=== PATIENT | female | born 1940 | race Caucasian/White ===

== ENCOUNTER 2019-01-11 15:25 | Emergency (ER) | payer MEDICARE, SELFPAY ==
[2019-01-11 15:35] VITALS: BP 168/89; PULSE 96; RESP 15; TEMP 36.6; O2SAT 99; BMI 24.3
== END 2019-01-11 17:23 | disposition left against medical advice (07) ==
PROVIDERS: Emergency Provider Emergency Medicine
DX: Z53.21 Procedure and treatment not carried out due to patient leaving prior to being seen by health care provider (principal)
CPT/HCPCS: 99282

== ENCOUNTER → 2020-03-23 14:23 | Outpatient (CLI) | payer MEDICARE, SELFPAY ==
--- NOTE | 2020-03-23 | DI.MRI.S_ITS ---
PROCEDURE: MR HIP RT WO CON INDICATIONS: Broken internal right hip prosthesis, initial encounter TECHNIQUE: Noncontrast coronal T1 spin echo and STIR through the bony pelvis. Coronal and axial T2 fast spin echo with fat saturation, sagittal T1 spin echo, and oblique axial T2 fast spin echo with fat saturation through the hip. COMPARISON: [facility] [place], CR, XR PELVIS WITH LATERAL HIP RIGHT, 03/04/2020, 9:42. FINDINGS: Image quality: Degraded by right hip arthroplasty artifact. Status post right hip arthroplasty. Visualized osseous structures are grossly unremarkable. Low STIR signal intensity material within the soft tissues surrounding the right proximal femur is present, consistent with postsurgical sequelae. No soft tissue fluid collections. Visualized pelvic viscera are grossly unremarkable. IMPRESSION: 1. Limited negative evaluation of the pelvis and right hip. CT might be helpful to evaluate the right hip prosthesis. Dictated by: Mee Meng M.D. on 03/23/2020 at 15:37 Approved by: Mee Meng M.D. on 03/23/2020 at 15:43
== END ==
PROVIDERS: PCP Physician Assistant; Referring Provider Orthopaedic Surgery; Visit Provider Orthopaedic Surgery
DX: T84.010A Broken internal right hip prosthesis, initial encounter (principal)
CPT/HCPCS: 73721

== ENCOUNTER 2020-04-24 15:23 | Emergency (ER) | payer MEDICARE, SELFPAY ==
[2020-04-24] VITALS (14 sets, daily range): BP systolic 191–240; BP diastolic 94–138; PULSE 80–88; RESP 13–41; TEMP 36.7–36.9; O2SAT 97–100; BMI 23.1
--- NOTE | 2020-04-24 15:59 | DI.RAD.S_ITS ---
PROCEDURE: XR CHEST 1V INDICATIONS: chest pain TECHNIQUE: One view of the chest was acquired. COMPARISON: None. FINDINGS: Surgical changes and devices: None. Lungs and pleura: Lungs are clear. No pleural effusions or pneumothorax. Mediastinum: Mediastinal contours appear normal. Heart size is normal. Bones and chest wall: No suspicious bony lesions. Overlying soft tissues appear unremarkable. IMPRESSION: Mild interstitial prominence, within the lung parenchyma, no pneumonia found. A definite source of chest pain is not seen. Dictated by: Darren Lo M.D. on 04/24/2020 at 16:48 Approved by: Darren Lo M.D. on 04/24/2020 at 16:48
--- NOTE | 2020-04-24 16:29 | PC.NURSE ---
Pt denies pain of any kind except for R hip pain, which was the reason for her visit to the doctor today.
--- NOTE | 2020-04-24 16:32 | PC.NURSE ---
Pt denies any s/sx of HTN, such as SIMENTAL. Denies cardiac hx although she states that she used to take medication for HTN over 13 years ago. Went to the doctor today for preop appointment for second-time R hip replacement, first was about 8 years ago. Takes CBD oil for hip pain and brain and memory supplements but denies other meds. Friend with her states that she has some dementia. Pt pleasant but confused with multiple activities in the room. BP taken on both arms without significant difference in measurements. No edema noted and pt denies edema at any time.
[2020-04-24 16:43] LABS: Prothrombin Time 11.3 SECONDS (10.1-12.7)
[2020-04-24 16:46] LABS: PTT Partial Thromboplastin Tim 26 SECONDS (26.4-36.2)
[2020-04-24 16:47] LABS: Add Manual Diff / Slide Review NO; Basophils Absolute Auto 100 /uL (0-100); Basophils Percent Auto 1.3 % (0-2); Eosinophils Absolute Auto 100 /uL (0-450); Eosinophils Percent Auto 1.1 % (2-4); Hematocrit 44.9 % (36-46); Hemoglobin 15.4 g/dL (12.0-16.0); Lymphocytes Absolute Auto 2800 /uL (1100-4500); Lymphocytes Percent Auto 33.3 % (25-40); Mean Corpuscular HGB Conc 34.3 % (30-36); Mean Corpuscular Hemoglobin 30.6 PG (26-34); Mean Corpuscular Volume 89.3 fL (80-100); Monocytes Absolute Auto 700 /uL (0-900); Monocytes Percent Auto 7.7 % (3-14); Neutrophils Absolute Auto 4800 /uL (1500-7000); Neutrophils Percent Auto 56.6 % (50-75); Red Blood Cell Count 5.03 X10^6/uL (4.0-5.2); Red Cell Distribution Width 13.5 % (11.6-14.8); White Blood Cell Count 8.5 X10^3/uL (4.5-11.0)
[2020-04-24 16:51] LABS: Alanine Aminotransferase 19 IU/L (<35); Albumin 4.8 g/dL (3.5-5.0); Albumin Globulin Ratio 1.5 (1.0-2.8); Alkaline Phosphatase 113 U/L (38-126); Aspartate Aminotransferase 33 IU/L (14-36); BUN Creatinine Ratio 27.5 (6-22); Bilirubin Total 0.7 mg/dL (0.2-1.3); Blood Urea Nitrogen 19 mg/dL (7-17); Calcium 9.7 mg/dL (8.4-10.2); Carbon Dioxide 28 mmol/L (22-32); Chloride 93 mmol/L (98-107); Creatine Kinase 67 U/L (30-135); Estimated Glomerular Filt Rate > 60.0 mL/min (>60); Globulin 3.2 g/dL (1.7-4.1); Glucose 98 mg/dL (80-110); HEMOLYSIS 15 (0-50); Lipase 220 U/L (23-300); Potassium 4.1 mmol/L (3.4-5.1); Sodium 130 mmol/L (137-145)
[2020-04-24 17:03] LABS: Troponin I < 0.012 ng/mL (0.01-0.034)
[2020-04-24] MEDS: lisinopriL 5 MG TABLET PO (17:43)
--- NOTE | 2020-04-24 17:48 | ED.GENADULT ---
HPI - General Adult <Shanelart OliveiraYENIFER- - Last Filed: 04/24/20 18:40> General Chief complaint: Hypertension Stated complaint: high blood pressure Time Seen by Provider: 04/24/20 15:57 Source: patient Mode of arrival: Ambulatory Limitations: no limitations History of Present Illness HPI narrative: The patient is a 79-year-old female former smoker with history of have memory issues, remote history of hypertension who presents with a chief complaint of high blood pressure. She went to preop today to be evaluated for a possible total hip. She was found to be hypertensive in the 240 systolic so she was referred to the emergency department. The patient denies any abdominal pain, chest pain, nausea vomiting or diarrhea. She denies any headache or lightheadedness or dizziness. She states she does not know how long her blood pressures been high, she had a hip replacement several years ago and states that she does not see doctors very often. She used to be on blood pressure medication about 14-15 years ago, does not remember what she was taking Related Data Home Medications Medication Instructions Recorded Confirmed oxycodone-acetaminophen 1 - 2 tab PO Q6H PRN 01/11/19 Previous Rx's Medication Instructions Recorded lisinopril 5 mg PO DAILY #14 tab 04/24/20 Allergies Allergy/AdvReac Type Severity Reaction Status Date / Time oxycodone AdvReac Verified 04/24/20 15:28 Review of Systems <Shanelart Morochoronald [facility] - Last Filed: 04/24/20 18:40> Review of Systems Narrative: GENERAL: Denies chills, fatigue, malaise, fever, sweats. HEENT: Denies sinus pain, ear pain, sore throat, difficulty swallowing, dizziness. RESPIRATORY: Denies dyspnea, cough, wheezing, hemoptysis, sputum. CARDIOVASCULAR: Denies chest pain, palpitations, orthopnea, edema, GASTROINTESTINAL: Denies nausea, vomiting, abdominal pain, diarrhea, constipation, melena. : Denies dysuria, frequency, incontinence, hematuria, urinary retention. MUSCULOSKELETAL: denies weakness, joint pain, or bony pain SKIN: Denies rash, skin lesions, or other NEUROLOGIC: Denies weakness, headache, numbness, change in speech, confusion, seizures, incoordination. PSYCHIATRIC: No concerning psychosocial issues. 12 point review of systems is negative except for those stated above Patient History <EVGENY James - Last Filed: 04/24/20 18:40> Medical History (Updated 04/24/20 @ 18:20 by EVGENY James) Hypertension (Acute) Social History Smoking Status: Former smoker Smoking Status: Former smoker alcohol intake frequency: 0-2 drinks per day Substance Use Type: does not use Exam <EVGENY James - Last Filed: 04/24/20 18:40> Narrative Exam Narrative: GENERAL: This is a well-nourished, well-developed patient, in no acute distress HEAD: Atraumatic. Normocephalic. No temporal or scalp tenderness. EYES: Pupils equal round and reactive. Extraocular motions intact. No scleral icterus. No injection or drainage. ENT: Nose without bleeding, purulent drainage or septal hematoma. Throat without erythema, tonsillar hypertrophy or exudate. Uvula midline. Airway patent. NECK: Trachea midline. No JVD or lymphadenopathy. Supple, nontender, no meningeal signs. CARDIOVASCULAR: Regular rate and rhythm RESPIRATORY: Clear to auscultation. Breath sounds equal bilaterally. No wheezes, rales, or rhonchi. No cough. No increased respiratory effort. No accessory muscle use. GASTROINTESTINAL: Abdomen soft, non-tender, nondistended. No hepato-splenomegaly, or palpable masses. No guarding. EXTREMITIES: No clubbing, cyanosis, or edema. No joint tenderness, effusion, or edema noted. BACK: Nontender without deformity or crepitance. No flank tenderness. NEURO: AOx3. Interactive. Age appropriate. Using all extremities equally. SKIN: No rash or erythema on visible skin Initial Vital Signs Initial Vital Signs: Vital Signs Temperature 98.5 F 04/24/20 15:28 Pulse Rate 83 04/24/20 15:28 Respiratory Rate 04/24/20 15:28 Blood Pressure 240/105 H 04/24/20 15:28 Pulse Oximetry 97 04/24/20 15:28 <Mani Dickens MD - Last Filed: 05/02/20 04:57> Initial Vital Signs Initial Vital Signs: Vital Signs Temperature 98.5 F 04/24/20 15:28 Pulse Rate 83 04/24/20 15:28 Respiratory Rate 04/24/20 15:28 Blood Pressure 240/105 H 04/24/20 15:28 Pulse Oximetry 97 04/24/20 15:28 Scores <EVGENY James - Last Filed: 04/24/20 18:40> GCS Dazey coma scale eye opening: Spontaneous Areli coma scale verbal response: Orientated Dazey coma scale motor response: Obey commands Areli coma scale total score: 15 Course <EVGENY James - Last Filed: 04/24/20 18:40> Orders Ordered: Discontinued Medications Lisinopril (Zestril) 5 mg PO NOW ONE Stop: 04/24/20 17:30 Last Admin: 04/24/20 17:43 Dose: 5 mg Documented by: VINNIE Vital Signs Vital signs: Vital Signs - 8 hr 04/24/20 15:28 04/24/20 16:02 04/24/20 16:30 Temperature 98.5 F Pulse Rate 83 80 80 Respiratory Rate 20 19 Blood Pressure 240/105 H Pulse Oximetry 97 99 100 04/24/20 16:34 04/24/20 16:36 04/24/20 16:46 Temperature 98.1 F Pulse Rate 82 83 Respiratory Rate 24 Blood Pressure 225/112 H 218/138 H 207/98 H Pulse Oximetry 99 99 04/24/20 17:00 04/24/20 17:15 04/24/20 17:30 Temperature Pulse Rate 80 80 80 Respiratory Rate 13 35 H 20 Blood Pressure 200/99 H 191/94 H 191/97 H Pulse Oximetry 98 98 98 04/24/20 17:43 04/24/20 17:45 04/24/20 18:00 Temperature Pulse Rate 87 88 80 Respiratory Rate 28 H 41 H Blood Pressure 191/97 H 200/101 H 219/105 H Pulse Oximetry 99 99 04/24/20 18:11 04/24/20 18:15 Temperature Pulse Rate 82 80 Respiratory Rate 17 25 H Blood Pressure 217/107 H 193/105 H Pulse Oximetry 99 98 <Mani Dickens MD - Last Filed: 05/02/20 04:57> Orders Ordered: Discontinued Medications Lisinopril (Zestril) 5 mg PO NOW ONE Stop: 04/24/20 17:30 Last Admin: 04/24/20 17:43 Dose: 5 mg Documented by: LMISQUITTA Vital Signs Vital signs: Vital Signs - 8 hr 04/24/20 15:28 04/24/20 16:02 04/24/20 16:30 Temperature 98.5 F Pulse Rate 83 80 80 Respiratory Rate 20 19 Blood Pressure 240/105 H Pulse Oximetry 97 99 100 04/24/20 16:34 04/24/20 16:36 04/24/20 16:46 Temperature 98.1 F Pulse Rate 82 83 Respiratory Rate 24 Blood Pressure 225/112 H 218/138 H 207/98 H Pulse Oximetry 99 99 04/24/20 17:00 04/24/20 17:15 04/24/20 17:30 Temperature Pulse Rate 80 80 80 Respiratory Rate 13 35 H 20 Blood Pressure 200/99 H 191/94 H 191/97 H Pulse Oximetry 98 98 98 04/24/20 17:43 04/24/20 17:45 04/24/20 18:00 Temperature Pulse Rate 87 88 80 Respiratory Rate 28 H 41 H Blood Pressure 191/97 H 200/101 H 219/105 H Pulse Oximetry 99 99 04/24/20 18:11 04/24/20 18:15 Temperature Pulse Rate 82 80 Respiratory Rate 17 25 H Blood Pressure 217/107 H 193/105 H Pulse Oximetry 99 98 Medical Decision Making <Shanel Oliveira, MANAGER [employer]ATE[employer] - Last Filed: 04/24/20 18:40> Lab Data Result diagrams: 04/24/20 16:15 04/24/20 16:15 Labs: Lab Results 04/24/20 04/24/20 04/24/20 Range/Units 16:15 16:15 16:15 WBC 8.5 (4.5-11.0) X10^3/uL RBC 5.03 (4.0-5.2) X10^6/uL Hgb 15.4 (12.0-16.0) g/dL Hct 44.9 (36-46) % MCV 89.3 (80-100) fL MCH 30.6 (26-34) PG MCHC 34.3 (30-36) % RDW 13.5 (11.6-14.8) % Plt Count TNP Neut % (Auto) 56.6 (50-75) % Lymph % (Auto) 33.3 (25-40) % [place] % (Auto) 7.7 (3-14) % Eos % (Auto) 1.1 L (2-4) % Baso % (Auto) 1.3 (0-2) % Neut # (Auto) 4800 (3642-8548) /uL Lymph # (Auto) 2800 (6148-8018) /uL [place] # (Auto) 700 (0-900) /uL Eos # (Auto) 100 (0-450) /uL Baso # (Auto) 100 (0-100) /uL PT 11.3 (10.1-12.7) SECONDS INR 1.0 (0.9-1.3) APTT 26 L (26.4-36.2) SECONDS Sodium 130 L (137-145) mmol/L Potassium 4.1 (3.4-5.1) mmol/L Chloride 93 L (98-107) mmol/L Carbon Dioxide 28 (22-32) mmol/L BUN 19 H (7-17) mg/dL Creatinine 0.69 (0.52-1.04) mg/dL Estimated GFR > 60.0 (>60) mL/min BUN/Creatinine Ratio 27.5 H (6-22) Glucose 98 (80-110) mg/dL Calcium 9.7 (8.4-10.2) mg/dL Total Bilirubin 0.7 (0.2-1.3) mg/dL AST 33 (14-36) IU/L ALT 19 (<35) IU/L Alkaline Phosphatase 113 (38-126) U/L Total Creatine Kinase 67 (30-135) U/L CK-MB (CK-2) TNP CK-MB (CK-2) Rel Index TNP Troponin I < 0.012 (0.01-0.034) ng/mL Total Protein 8.0 (6.3-8.2) g/dL Albumin 4.8 (3.5-5.0) g/dL Globulin 3.2 (1.7-4.1) g/dL Albumin/Globulin Ratio 1.5 (1.0-2.8) Lipase 220 (23-300) U/L Imaging Data Chest x-ray: Radiologist's Impression: [address] [place] [id number] XRay Report Signed Patient: Roslyn Fontaine#: [id number] : 2Acct:[id number] Age/Sex: 79 / FDate of Service: 04/24/20 Loc: ED Accession Number: [id number] Procedure: XR chest 1V Ordering Provider: Shanel Oliveira PROCEDURE: XR CHEST 1V INDICATIONS: chest pain TECHNIQUE: One view of the chest was acquired. COMPARISON: None. FINDINGS: Surgical changes and devices: None. Lungs and pleura: Lungs are clear. No pleural effusions or pneumothorax. Mediastinum: Mediastinal contours appear normal. Heart size is normal. Bones and chest wall: No suspicious bony lesions. Overlying soft tissues appear unremarkable. IMPRESSION: Mild interstitial prominence, within the lung parenchyma, no pneumonia found. A definite source of chest pain is not seen. Dictated by: Darren Lo M.D. on 04/24/2020 at 16:48 Approved by: Darren Lo M.D. on 04/24/2020 at 16:48 ECG Data Interpretation: Sinus rhythm. Ventricular rate 81. No ectopy noted. P.r. interval 167. QRS 87. Viewed by Dr. Dickens MDM Narrative Medical decision making narrative: The patient is a 79-year-old female who presents with a chief complaint of hypertension from preop clinic. She denies any symptoms, no chest pain shortness of breath. Her labs are overall reassuring, normal renal function. The patient presented hypertensive in the 240/120 range. We elected to try lisinopril to help bring down her blood pressure. However 15 minutes after she was given lisinopril, the patient was requesting to leave immediately. She states she is worried about her dogs. I discussed that leaving with such high blood pressure increases her risk of heart attack stroke and . I discussed this at length with the patient, her friend, as well as Jacqui MIX. Patient states she understands she is at higher risk of if she leaves the emergency department so hypertensive. However she still wants to leave against medical advice, Against Medical Advice paperwork signed the patient states understanding of risk of . However she was hemodynamically stable throughout her stay in the emergency department. I discussed that she can come back to the ER at any point, discussed being seen immediately if she has any concerns of heart attack stroke or acute concerns. Encouraged follow-up with primary care provider in the next few days. Patient and friend have no questions or concerns upon discharge and state understanding return precautions as well as follow-up care. <Mani Dickens MD - Last Filed: 05/02/20 04:57> Lab Data Labs: Lab Results 04/24/20 04/24/20 04/24/20 Range/Units 16:15 16:15 16:15 WBC 8.5 (4.5-11.0) X10^3/uL RBC 5.03 (4.0-5.2) X10^6/uL Hgb 15.4 (12.0-16.0) g/dL Hct 44.9 (36-46) % MCV 89.3 (80-100) fL MCH 30.6 (26-34) PG MCHC 34.3 (30-36) % RDW 13.5 (11.6-14.8) % Plt Count TNP Neut % (Auto) 56.6 (50-75) % Lymph % (Auto) 33.3 (25-40) % [place] % (Auto) 7.7 (3-14) % Eos % (Auto) 1.1 L (2-4) % Baso % (Auto) 1.3 (0-2) % Neut # (Auto) 4800 (4503-2213) /uL Lymph # (Auto) 2800 (6231-7069) /uL [place] # (Auto) 700 (0-900) /uL Eos # (Auto) 100 (0-450) /uL Baso # (Auto) 100 (0-100) /uL PT 11.3 (10.1-12.7) SECONDS INR 1.0 (0.9-1.3) APTT 26 L (26.4-36.2) SECONDS Sodium 130 L (137-145) mmol/L Potassium 4.1 (3.4-5.1) mmol/L Chloride 93 L (98-107) mmol/L Carbon Dioxide 28 (22-32) mmol/L BUN 19 H (7-17) mg/dL Creatinine 0.69 (0.52-1.04) mg/dL Estimated GFR > 60.0 (>60) mL/min BUN/Creatinine Ratio 27.5 H (6-22) Glucose 98 (80-110) mg/dL Calcium 9.7 (8.4-10.2) mg/dL Total Bilirubin 0.7 (0.2-1.3) mg/dL AST 33 (14-36) IU/L ALT 19 (<35) IU/L Alkaline Phosphatase 113 (38-126) U/L Total Creatine Kinase 67 (30-135) U/L CK-MB (CK-2) TNP CK-MB (CK-2) Rel Index TNP Troponin I < 0.012 (0.01-0.034) ng/mL Total Protein 8.0 (6.3-8.2) g/dL Albumin 4.8 (3.5-5.0) g/dL Globulin 3.2 (1.7-4.1) g/dL Albumin/Globulin Ratio 1.5 (1.0-2.8) Lipase 220 (23-300) U/L Discharge Plan Departure Patient Disposition: Left Against Medical Advice Clinical Impression: Hypertension Qualifiers: Hypertension type: unspecified Qualified Code(s): I10 - Essential (primary) hypertension Discharge Date/Time: 04/24/20 18:33 Instructions: DI for High Blood Pressure Activity Restrictions/Additional Instructions: Thank you for trusting us with your care today. You have elected to leave against medical advice today, before we got control of your blood pressure. This increases her chance of stroke, heart attack, . Please follow-up with primary care provider in the next few days. I sent a prescription of a blood pressure medication to [facility] in [place]. Please come back to the emergency department for any acute concerns or go to your closest emergency department for any acute concerns such as chest pain, shortness of breath, concern of heart attack or stroke Prescriptions: New lisinopril 5 mg tablet 5 mg PO DAILY Qty: 14 RF: 0 No Action oxycodone-acetaminophen 5-325 mg tablet 1 - 2 tab PO Q6H PRN (Reason: pain) RF: 0 Referrals: Anamaria Escalera ARNP [Non-Staff] - Josephine Guevara PA-C [Primary Care Provider] - Stand Alone Forms: Against Medical Advice <Mani Dickens MD - Last Filed: 05/02/20 04:57> [facility] Attestation: I was immediately available in the department for consultation. This documentation has been reviewed and I agree with assessment and plan. Supervised by Mani Dickens MD
--- NOTE | 2020-04-24 18:19 | PC.NURSE ---
Pt asked this RN if she could leave, states that she has been checked out already and feels fine. Pt's friend also asked if pt could be discharged because she is getting antsy. Shanel LANCASTERP in to pt room to explain risks of leaving AMA including heart attack, stroke and increased risk of . Pt agrees to sign ama form.
== END 2020-04-24 18:33 | disposition left against medical advice (07) ==
PROVIDERS: Emergency Provider Nurse Practitioner Family; PCP Physician Assistant
DX: I10 Essential (primary) hypertension (principal); R07.9 Chest pain, unspecified
CPT/HCPCS: 36415; 71045; 80053; 82550; 83690; 84484; 85025; 85610; 85730; 93005; 99284

== ENCOUNTER → 2020-05-15 11:20 | Outpatient (CLI) | payer MEDICARE, SELFPAY ==
[2020-05-17 09:29] LABS: COVID19 Sendout Not Detected (Not Detect)
== END ==
PROVIDERS: PCP Physician Assistant; Visit Provider Physician Assistant
DX: Z11.59 Encounter for screening for other viral diseases (principal)
CPT/HCPCS: 87635

== ENCOUNTER → 2020-05-15 11:43 | Outpatient (CLI) | payer MEDICARE, SELFPAY ==
[2020-05-15 12:20] LABS: Add Manual Diff / Slide Review NO; Basophils Absolute Auto 100 /uL (0-100); Basophils Percent Auto 0.6 % (0-2); Eosinophils Absolute Auto 100 /uL (0-450); Eosinophils Percent Auto 1.2 % (2-4); Hematocrit 41.8 % (36-46); Hemoglobin 14.3 g/dL (12.0-16.0); Lymphocytes Absolute Auto 2400 /uL (1100-4500); Lymphocytes Percent Auto 28.2 % (25-40); Mean Corpuscular HGB Conc 34.1 % (30-36); Mean Corpuscular Hemoglobin 30.6 PG (26-34); Mean Corpuscular Volume 89.6 fL (80-100); Monocytes Absolute Auto 800 /uL (0-900); Monocytes Percent Auto 9.3 % (3-14); Neutrophils Absolute Auto 5100 /uL (1500-7000); Neutrophils Percent Auto 60.7 % (50-75); Platelet Count 270 X10^3/uL (150-400); Red Blood Cell Count 4.67 X10^6/uL (4.0-5.2); Red Cell Distribution Width 13.7 % (11.6-14.8); White Blood Cell Count 8.5 X10^3/uL (4.5-11.0)
[2020-05-15 12:53] LABS: BUN Creatinine Ratio 23.5 (6-22); Blood Urea Nitrogen 16 mg/dL (7-17); Calcium 9.9 mg/dL (8.4-10.2); Carbon Dioxide 28 mmol/L (22-32); Chloride 95 mmol/L (98-107); Estimated Glomerular Filt Rate > 60.0 mL/min (>60); Glucose 116 mg/dL (80-110); HEMOLYSIS < 15 (0-50); Potassium 4.5 mmol/L (3.4-5.1); Sodium 131 mmol/L (137-145)
== END ==
PROVIDERS: PCP Physician Assistant; Referring Provider Orthopaedic Surgery Adult Reconstructive Orthopaedic Surgery; Visit Provider Orthopaedic Surgery Adult Reconstructive Orthopaedic Surgery
DX: Z01.812 Encounter for preprocedural laboratory examination (principal); Z11.59 Encounter for screening for other viral diseases; R73.9 Hyperglycemia, unspecified
CPT/HCPCS: 36415; 80048; 83036; 85025; 87635

== ENCOUNTER 2020-05-18 09:14 | Inpatient (IN) | payer MEDICARE, SELFPAY ==
[2020-05-11 13:59] VITALS: BMI 23.9
[2020-05-18] VITALS (14 sets, daily range): BP systolic 81–189; BP diastolic 43–90; PULSE 60–86; RESP 11–30; TEMP 35.8–36.4; O2SAT 94–100; BMI 24.1
--- NOTE | 2020-05-18 | DI.RAD.S_ITS ---
PROCEDURE: XR PELVIS 1-2V INDICATIONS: REVISION RIGHT HIP/ INTRA OPERATIVE FILMS TECHNIQUE: Intra-operative view of the pelvis and hip acquired. COMPARISON: [facility], , PELVIS 1 OR 2 VIEWS, 07/18/2007, 10:40. FINDINGS: Bones: Intraoperative images shows revision of previous right total hip arthroplasty with anatomic right hip alignment. No fractures or suspicious bony lesions. Soft tissues: Overlying surgical retractors are present, along with other intraoperative changes. IMPRESSION: Intraoperative images of revision of right total hip arthroplasty with anatomic alignment. Dictated by: Paolo Lamar M.D. on 05/18/2020 at 15:02 Approved by: Paolo Lamar M.D. on 05/18/2020 at 15:03
--- NOTE | 2020-05-18 06:00 | DI.RAD.S_ITS ---
PROCEDURE: XR PELVIS 1-2V INDICATIONS: post op films right revision hip TECHNIQUE: 1 view of the lower pelvis acquired. COMPARISON: [facility], [facility], XR PELVIS 1-2V, 05/18/2020, 14:08. [facility], [facility], PELVIS 1 OR 2 VIEWS, 07/18/2007, 10:40. FINDINGS: Bones: Patient is status post right hip arthroplasty, with hardware components in expected positions. The hip joint appears congruent. The visualized bony structures appear intact. Soft tissues: Overlying postoperative changes are noted. No suspicious soft tissue densities. IMPRESSION: Normal alignment after right total hip arthroplasty. Dictated by: Darren Lo M.D. on 05/18/2020 at 16:30 Approved by: Darren Lo M.D. on 05/18/2020 at 16:33
[2020-05-18] MEDS: ACETAMINOPHEN 325 MG TABLET 975 MG PO (09:46)
[2020-05-18] MEDS: CELECOXIB 200 MG CAPSULE PO (09:46)
[2020-05-18] MEDS: PREGABALIN 75 MG CAPSULE PO (09:46)
[2020-05-18] MEDS: LACTATED RINGERS 1,000 ML 42 ML IV ×2 (09:47→13:15)
--- NOTE | 2020-05-18 12:45 | PM.PREOP ---
Pre-operative Note COVID-19 COVID-19 status: Negative Result date/Date tested (Pos, Neg/Pending): 05/15/20 Interval Note History & Physical reviewed/Exam performed by Physician: Yes Changes to H&P: No H&P completed within 30 days and has changed as indicated here:: Plan for revision right BRE, possible cup, head and liner exchange vs. full revision.
[2020-05-18] MEDS: CEFAZOLIN 2 GM/100 ML FROZ.PIGGY IV ×2 (13:05→20:44)
[2020-05-18] MEDS: TRANEXAMIC ACID 1,000 MG VIAL 1000 MG INJ ×2 (13:25→15:03)
--- NOTE | 2020-05-18 13:44 | SUR.OPER ---
Lateral on padded OR bed. Gel axillary roll. Arms secured on padded armboard with pillow supporting top arm. Padded hip positioner braces x4 - anterior and posterior chest and pelvis. Additional gel pad used anterior pelvis. Gel pad under bottom leg from knee to foot and secured with tape over sheet.
[2020-05-18] MEDS: ROPIVACAINE 0.5% PF 5 MG/ML 20ML VIAL 60 ML INJ (13:55)
[2020-05-18] MEDS: KETOROLAC 30 MG/ML VIAL IV (13:56)
[2020-05-18] MEDS: MORPHINE 4 MG/ML INJ INJ (13:56)
[2020-05-18] MEDS: SODIUM CHLORIDE IRRIG SOLUTION 250 ML, POVIDONE-IODINE SPONGE STICKS 1 APPLIC IRR (13:59)
[2020-05-18] MEDS: VANCOMYCIN 1,000 MG VIAL 1000 MG TOP (14:15)
--- NOTE | 2020-05-18 15:45 | PM.OP.1 ---
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 Revision of cup, liner, and head. Hip abductor repair. Same procedure as scheduled: Yes Indications: Failed metal on metal right total hip arthroplasty with pain, pseudotumor formation, and elevated serum metal ions. Surgeon: Sergio Montesinos Commercial Representative: Clarita Mchugh Click Yes if Unassisted: No Anesthesia Type: General and Spinal Operative Notes Findings: Pseudotumor formation with erosion into the abductors as well as in the lateral cortex of the femur and the anterior superior and posterior acetabulum. Closure Type: non-primary Specimen(s): other (2x cultures) Prosthetic devices, grafts, tissues, transplants, or devices: Mchugh and Nephew 60 mm Redapt acetabular cup 35mm screw 15mm screw 25mm locking screw 20mm locking screw 15mm locking screw 60 mm x 46 mm Oxinium dual mobility liner 28 mm x 46 mm dual mobility polyethylene liner Biolox 28 +12 revision 07/27 taper head Arthrex 5.5 suture anchor Estimated Blood Loss (mL): 200 Blood products transfused: none Procedure in detail: Patient was met in the preoperative holding area where the site and side of surgery were marked by . Informed consent had been reviewed including but was reviewed again the in the preoperative holding area. All last minute questions were answered. Patient was then brought back into the operating room where she received a spinal anesthetic and then was induced under general anesthesia. She was then placed into the left lateral decubitus position and all bony prominences were well padded. The right lower extremity was then prepped and draped in normal sterile fashion. A surgical time-out was performed verifying site and side of surgery as well as the name of the patient. Her old surgical incision scar was ellipsed out using 10. Blade and electrocautery was used down to the level of the ITB band. A new 10. Blade was then used to split the ITB band and the superior gluteal fascia at this point we encountered fluid and grade debris consistent with pseudotumor. Two culture swabs were sent. The gluteus tabatha was split in line with its fibers and the pseudo capsule was then split to give us access to the cup and head. A larger volume of necrotic debris was rongeured away. Most under pre was found at the lateral margin of the femur as well as over the greater trochanter with the hip abductors were severely eroded from the insertion on the greater trochanter. The bone itself appeared largely intact although there is an area of erosion to the femur to the level of the prosthesis at the lateral margin of the femur just distal to the greater trochanter. There is also large volume of necrotic debris within the capsule this was ellipsed out. After this was completed we then dislocated the hip and the head was malleted off the trunnion the trunnion was in good condition. A pocket just anterior to the acetabulum was made at the 2 o'clock position with a curved osteotome. The femur was then shotgunned and the neck of the femoral prosthesis was placed in this pocket and the anterior retractor was used to hold the femur anteriorly away from the acetabulum to give us good exposure to the acetabulum. At this point we tested to see if the acetabular cup was loose a rongeur was placed on the lateral margin of the cup and given several strikes of the cup not come loose the metal liner did vibrate free this was removed and a trial liner was then placed so that the Luis explant could be used. We start with a short blade followed by the long blade and the acetabular cup was easily removed with minimal bone loss. We then turned our attention back to the femur thoroughly interrogated the junction of the femoral prosthesis into the proximal femur did not appreciate any loosened loosening or further pseudotumor formation. The femur was then retracted anteriorly again and we began reaming with a 56 mm Reamer taking care not to medialized our superior eyes we then went up by 2s to a 58 mm Reamer followed by 59 mm Reamer and selected a 60 mm multi-hole read out revision cup. 15 cc of cancellous chips were then placed into the acetabulum cup the 59 mm Reamer was then run on reverse to impact into the cystic spaces around the acetabulum. This was malleted into place and a dual mobility trial liner was then placed followed by a 28+ 8.5 mm head for a to mobility liner this was then reduced. Hip was stable in the position of sleep however with the flexion internal rotation is only stable to about 45?. X-rays were then brought in x-ray taken which demonstrated that the hip was a little bit more vertical than ideal as well as could use some more anteversion. The hip was then dislocated trial components were removed and the cup impactor was replaced and the cup was then brought into a more horizontal position as well as more anteversion. This point we trialed with a 12.5 mm neck length and had better stability. 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 The Oxinium to mobility liner was then impacted into place and checked that it was flushed with the rim and well seated. A bio locks 28 mm 12 14 revision taper +12 neck length head was then Press-Fit into the to mobility liner. This was then placed onto the trunnion and malleted into place the hip was then reduced. The wound was then thoroughly irrigated with dilute Betadine solution which was left to sit for several minutes prior to being lodged away with copious normal saline. At this point a suture anchor was selected to attempt repair of the hip abductors she had poor bone quality at the greater trochanter. A 2.5 mm drill was drilled for a 5.5 mm suture anchor was then placed and sutures were placed in a mattress fashion into the hip abductors and tightened down. 1 g of vancomycin was then placed into the wound and the pseudo capsule was closed using a running Ethibond suture followed by 1. Vicryl interrupted fashion the ITB band followed by running 1. Vicryl in the superior gluteal fascia. A 1. Running Vicryl was then used in the as a fat layer stitch followed by 2 Vicryl interrupted fashion in the subcutaneous layer followed by radha on skin and Aquacel dressing. The drapes were then removed and a hip abduction pillow was placed. Complications: none Post-operative Condition: stable Disposition: PACU Plan for aftercare: WBAT RLE, posterior hip precautions, 24 horus post-op abx, ASA 81mg BID for 6 weeks
--- NOTE | 2020-05-18 15:59 | SUR.PHASEI ---
Report given to Jaylyn
[2020-05-18] MEDS: LACTATED RINGERS 1,000 ML 125 ML IV (16:30)
[2020-05-18] MEDS: ASPIRIN EC 81 MG TABLET PO (20:44)
[2020-05-18] MEDS: ACETAMINOPHEN 325 MG TABLET 650 MG PO (20:44)
[2020-05-18] MEDS: DOCUSATE 100 MG CAPSULE PO (20:44)
[2020-05-18 21:33] LABS: Add Manual Diff / Slide Review NO; Basophils Absolute Auto 0 /uL (0-100); Basophils Percent Auto 0.1 % (0-2); Eosinophils Absolute Auto 0 /uL (0-450); Hematocrit 45.3 % (36-46); Hemoglobin 15.1 g/dL (12.0-16.0); Lymphocytes Absolute Auto 1100 /uL (1100-4500); Lymphocytes Percent Auto 7.3 % (25-40); Mean Corpuscular HGB Conc 33.4 % (30-36); Mean Corpuscular Hemoglobin 30.3 PG (26-34); Mean Corpuscular Volume 90.9 fL (80-100); Monocytes Absolute Auto 200 /uL (0-900); Monocytes Percent Auto 1.4 % (3-14); Neutrophils Absolute Auto 13800 /uL (1500-7000); Neutrophils Percent Auto 91.2 % (50-75); Platelet Count 214 X10^3/uL (150-400); Red Blood Cell Count 4.98 X10^6/uL (4.0-5.2); Red Cell Distribution Width 13.5 % (11.6-14.8); White Blood Cell Count 15.1 X10^3/uL (4.5-11.0)
[2020-05-19] VITALS (9 sets, daily range): BP systolic 125–160; BP diastolic 76–103; PULSE 77–103; RESP 14–20; TEMP 35.6–36.8; O2SAT 96–100
[2020-05-19] MEDS: LACTATED RINGERS 1,000 ML 125 ML IV (01:04)
[2020-05-19] MEDS: CEFAZOLIN 2 GM/100 ML FROZ.PIGGY IV (04:36)
[2020-05-19] MEDS: ONDANSETRON 4 MG ODT PO (04:55)
[2020-05-19 05:53] LABS: Hematocrit 37.9 % (36-46)
--- NOTE | 2020-05-19 07:48 | PC.NURSE ---
Day shift: Pt confused this AM. MALAIKA Rodrigez is aware and has put eyes and tlaked to Pt at this time. Pt in chair and comfortable. No c/o pain. Dressing is CDI. CMS intact and PPP. Pt stated I haven't had surgery yet. Explained to Pt that she did have surgery yesterday. Encouraged I.S. use and Pt did well using it. Will continue to monitor Pt. Ambulated w/ FWW to BR and Pt was slow and steady. SL at this time as well. MALAIKA Rodrigez is ordering more labs and a UA. Call light in reach. Pt attached to chair alarm also. Door to room open. Shades are up and door is open. rejected items clerk is also aware of Pt's confusion.
--- NOTE | 2020-05-19 07:52 | PM.PN.1 ---
Subjective Subjective Date Patient Seen: 05/19/20 Time Patient Seen: 07:52 Interval history: Patient is POD# 1 s/p right revision BRE with Dr. Montesinos. Pain has been minimal, controlled with Tylenol. She had several episodes of vomiting overnight but denies nausea currently. She has no complaints. Does have some postoperative confusion, believes she has not yet had surgery. Exam Vital Signs (past 8 hours): - 05/19/20 00:24 05/19/20 03:36 Temperature 96.0 F L 97.2 F L Pulse Rate 77 93 H Respiratory Rate 14 16 Blood Pressure 125/84 153/97 H Pulse Oximetry 99 96 Oxygen Delivery Method Room Air Oxygen Flow Rate 0 Narrative Exam Narrative: 79 year old female resting in chair, alert and oriented x2. Pleasantly confused and does not remember having surgery. Dressing in place over right hip is CDI. Neurovascularly intact in distal extremity. Calves are soft, nontender. Objective Labs Result Diagrams: 05/19/20 05:39 Labs: Laboratory Results - last 24 hr 05/18/20 05/19/20 21:27 05:39 WBC 15.1 H RBC 4.98 Hgb 15.1 13.0 Hct 45.3 37.9 MCV 90.9 MCH 30.3 MCHC 33.4 RDW 13.5 Plt Count 214 Neut % (Auto) 91.2 H Lymph % (Auto) 7.3 L [place] % (Auto) 1.4 L Eos % (Auto) 0.0 L Baso % (Auto) 0.1 Neut # (Auto) 20853 H Lymph # (Auto) 1100 [place] # (Auto) 200 Eos # (Auto) 0 Baso # (Auto) 0 Assessment & Plan Assessment & Plan narrative: Patient with likely postoperative delirium with elevated WBC. CMP, magnesium level,UA and chest xray ordered to rule out organic causes. She has not taken any narcotics postop. She may work with PT, WBAT. ASA 81mg BID for DVT prophylaxis. She states she has a friend who will be her caregiver postop. Likely discharge to home late today or tomorrow pending results.
--- NOTE | 2020-05-19 07:59 | DI.RAD.S_ITS ---
PROCEDURE: XR CHEST 1V INDICATIONS: postop confusion, elevated WBC TECHNIQUE: One view of the chest was acquired. COMPARISON: [facility], CR, XR CHEST 1V, 04/24/2020, 16:13. FINDINGS: Surgical changes and devices: Stable over time at the left shoulder. Lungs and pleura: Lungs are clear, except for a slight degree of interstitial prominence that has been chronically present. No pleural effusions or pneumothorax. Mediastinum: Mediastinal contours appear normal. Heart size is normal. Bones and chest wall: No suspicious bony lesions. Overlying soft tissues appear unremarkable. IMPRESSION: Mild interstitial prominence, chronically present, no pneumonia seen. Dictated by: Darren Lo M.D. on 05/19/2020 at 9:26 Approved by: Darren Lo M.D. on 05/19/2020 at 9:32
[2020-05-19 08:35] LABS: Alanine Aminotransferase 18 IU/L (<35); Albumin 3.8 g/dL (3.5-5.0); Albumin Globulin Ratio 1.5 (1.0-2.8); Alkaline Phosphatase 85 U/L (38-126); Aspartate Aminotransferase 33 IU/L (14-36); BUN Creatinine Ratio 30.2 (6-22); Bilirubin Total 0.6 mg/dL (0.2-1.3); Blood Urea Nitrogen 16 mg/dL (7-17); Calcium 9.3 mg/dL (8.4-10.2); Carbon Dioxide 28 mmol/L (22-32); Chloride 94 mmol/L (98-107); Estimated Glomerular Filt Rate > 60.0 mL/min (>60); Globulin 2.6 g/dL (1.7-4.1); Glucose 161 mg/dL (80-110); HEMOLYSIS < 15 (0-50); Magnesium 1.6 mg/dL (1.6-2.3); Potassium 4.5 mmol/L (3.4-5.1); Sodium 129 mmol/L (137-145); Total Protein 6.4 g/dL (6.3-8.2)
[2020-05-19] MEDS: DOCUSATE 100 MG CAPSULE PO ×2 (09:08→20:17)
[2020-05-19] MEDS: lisinopriL 10 MG TABLET PO (09:08)
[2020-05-19] MEDS: ASPIRIN EC 81 MG TABLET PO ×2 (09:08→20:17)
[2020-05-19] MEDS: ACETAMINOPHEN 325 MG TABLET 650 MG PO ×3 (09:08→21:35)
--- NOTE | 2020-05-19 09:30 | PT.IIE ---
Current Diagnoses Broken internal right hip prosthesis, initial encounter (05/18/20) Presence of right artificial hip joint (05/18/20) Surgery Performed Operation Date: 05/18/20 11:15 Actual Procedures p Total Hip Arthroplasty Revision-cup and head(Right) - Sergio Montesinos MD Surgical History (Last Updated 05/11/20 @ 14:18 by Mattie Andrade, RN) History of total right hip arthroplasty (Acute 2006) Hx of shoulder surgery (Acute) Hx of tonsillectomy (Acute) Medical History (Last Updated 05/11/20 @ 14:18 by Mattie Andrade RN) Hearing impaired (Acute) Hypertension (Acute) Memory changes (Acute) Osteoarthritis (Acute) Physical Therapy Inpatient Evaluation/Re-Eval M1 PT/OT-IP Prior Functional Status Start: 05/19/20 12:08 Freq: NEEDED Status: Active Protocol: Document 05/19/20 09:30 AB (Rec: 05/19/20 12:35 AB [id number]) Medical Review Prior Functional Status Medical History Reviewed Yes Communication able to make needs known Mobility and Gait pt stated that she is modified independent with all mobilities and ambulation using SPC Social History Household Members none Living Arrangements House Number of Floors (Floors) Two Floors Number of Stairs To Enter/Railing? Pt plans to stay at her friend 's house for ~ 1 week: info for home set up is regrading pt's friend's house no steps to enter; pt will stay on main level of the house friend has a chair lift to get to 2nd level home Home Equipment Straight Cane Additional Social History Comment pt does not know friend's shower/toilet set up pt has a standard walker M2 PT-IP Current Condition Start: 05/19/20 12:08 Freq: NEEDED Status: Active Protocol: Document 05/19/20 09:30 AB (Rec: 05/19/20 12:35 AB [id number]) Physical Therapy Current Condition Current Condition Evaluation Date 05/19/20 Treatment Diagnosis s/p R BRE revision posterior approach; difficulty in walking Onset Date 05/18/20 Precautions Posterior Hip Precautions No Hip Flexion > 90 degrees,No Hip Internal Rotation,No Hip Adduction Weight Bearing Status Weight Bearing Status Weight Bear as Tolerated Allowed Weight Bearing Amount (enter % RLE WBAT or #) (%) M3 PT-IP Subjective Start: 05/19/20 12:08 Freq: NEEDED Status: Active Protocol: Document 05/19/20 09:30 AB (Rec: 05/19/20 12:35 AB [id number]) Subjective Physical Therapy Visit Type Type Initial Evaluation Visit Start Time 09:30 Visit Stop Time 10:52 Total Visit Minutes 82 Number of OUTREACH WORKER Visits 0 Physical Therapy Visit Comments Patient Comments pt is agreeable to do PT Therapy Pain Assessment Pain Present Pain Present Denied Pain M4 PT-IP Mobility and Gait Start: 05/19/20 12:08 Freq: NEEDED Status: Active Protocol: Document 05/19/20 09:30 AB (Rec: 05/19/20 12:35 AB [id number]) PT-Bed Mobility Assessment Supine to Sit Supine to Sit Standby Assistance Sit to Supine Sit to Supine Standby Assistance PT-Transfer Assessment Sit to and From Stand Sit to and from Stand Minimal Assistance,1 Person Assistance,Use of Upper Extremities Equipment Transfer Assistive Device Gait Belt,Front Wheeled Walker Orthotic/Prosthetic Devices or Brace: No Transfers Transfer Destination Bed,Chair Transfer Technique ambulated using FWW Transfer Ability Level of Assist Minimal Assistance,1 Person Assistance,Use of Upper Extremities Comments Mobility Comments reviewed hip precautions and pt is unable to recall any of her precautions. requires step by step instructions on all tasks. completed sit to stand from chair min A and ambulated using FWW min A to the bed. completed bed mobility sit<>supine SBA. completed sit to stand form EOB min A and cues. ambulated back to chair min A using FWW. completed sit <>stand from chair x 3 reps min A and max cues. pt tends to be impulsive and requires constant cues for following hip precautions. positioned pt on chair. call light and table placed within reach. Gait Assessment Gait Gait Assistance Required: Minimum Assistance Distance (Feet) 12 Able to Maintain Weight Bearing Status Yes During Gait Assistive Devices Assistive Device Gait Belt,Front Wheeled Walker Gait Deviations General Gait Pattern Antalgic,Decreased Stride Length,Decreased Feet Clearance,Step-to Gait Factors Limiting Gait Function Factors Limiting Gait Function Decreased Activity Tolerance, Decreased Strength,Difficulty Following Directions,Limited Range of Motion,Pain,Poor Balance,Poor Safety Awareness Comments Gait Comments pls refer to mobility section for details PT-Balance Assessment Sitting Balance and Reactions Static Sitting Balance Ability Good Dynamic Sitting Balance Ability Good Standing Balance and Reactions Static Standing Balance Ability Fair Dynamic Standing Balance Ability Fair Device Used FWW M5 PT-IP Objective Assessments Start: 05/19/20 12:08 Freq: NEEDED Status: Active Protocol: Document 05/19/20 09:30 AB (Rec: 05/19/20 12:35 [id number]) Orientation Orientation/Cognition Level of Alertness Alert Orientation Name,Place,Situation Language Function Ability Hard of Hearing Safety Awareness Decreased Safety Awareness Memory Description Short Term Impaired,Mcc Impaired Strength Lower Extremity Strength Assessment Right Impaired Hip 3+/5 Knee 4-/5 Coordination Assessment Gross Coordination Gross Coordination WNL Sensation Assessment Sensation Gross Sensation WNL Muscle Tone Muscle Tone WNL Yes M6 PT-IP Treatment Start: 05/19/20 12:08 Freq: NEEDED Status: Active Protocol: Document 05/19/20 09:30 AB (Rec: 05/19/20 12:35 [id number]) Physical Therapy Treatment Education Education Provided Precautions,Weight Bearing Status,Post-Op Packet,Safety M7 PT-IP Assessment and Plan Start: 05/19/20 12:08 Freq: NEEDED Status: Active Protocol: Document 05/19/20 09:30 AB (Rec: 05/19/20 12:35 [id number]) PT Summary Assessment and Plan Potential Rehabilitation Potential Good Status of Condition at Evaluation Stable Summary Impairments Pain,ROM,Strength,Balance, Coordination,Sensation,Tone, Cognition,Bed Mobility, Transfers,Gait,Activity Tolerance Assessment Summary Pt requiring min A with mobility using FWW but required max cues for all tasks with pt unable to maintain hip precautions and required step by step instructions with all tasks. pt plans to go home with her friend but stated that her friend lives 2 hours away and will not be able to come in for caregiver training today. will have to conduct caregiver training and stair climbing training. pt stated that she is scheduled for outpt PT. d /c plan depending on progress. will continue to assess. Goals Bed Mobility Goal Standby Assistance Transfer Goal Standby Assistance,Front Wheeled Walker Gait Goal Standby Assistance,Front Wheel Walker Gait Distance 150 Days to Meet Goals 5 Frequency of Treatment Frequency Of Treatment Twice a Day Treatment Plan Physical Therapy Treatment Plan Bed Mobility Training,Transfer Training,Gait Training, Therapeutic Exercise,Balance Retraining,Post Op Education, Discharge Planning,Hot or Cold Pack,Neuromuscular Re-ed, Coordination Retraining,Manual Therapy Recommendations To Nursing Amount of Assist Needed 1 Person Assist Discharge Recommendations PT Discharge Recommendations Home with 24/7 Assist,SNF Rehab,Outpatient PT Other Discharge Recommendations depending on progress: SNF vs home with 24/7 and outpt PT Transportation Needs at Discharge Private Vehicle,Wheelchair/ Cabulance
--- NOTE | 2020-05-19 10:51 | CM.DANOTE ---
DCP: Case received, EMR reviewed and met with patient. Introduced self and role. Was able to obtain information from patient regarding her baseline activity level prior to surgery, as well as living situation and plan for discharge. DCP assessment completed with information currently available. Patient is a 79 year old female who admitted yesterday morning to the care of the orthopedic team. PCP: Dr. Guevara. Payer: confirmed: Medicare/[employer]. Patient came to the hospital via private vehicle for a surgical procedure. She had a revision right total hip arthroplasty, secondary to failed metal on metal total hip. Met with patient in her room. According to notes, patient had exhibited some confusion after surgery, asked if she had surgery yet. When this bottle caser entered room, she was pleasant. Sitting up in her chair. She asked this bottle caser for her friend, Chelsi Mancilla's phone number, for she plans to stay with her after surgery. Gave her the phone number so she could write it down. Patient resides in [place] on [address]. She indicated that her friend also lives in the area, who she will be staying with. She has a cane at baseline. Mentioned that she did have a fall outside when her large dog pulled her and caught her off balance. She landed on her hip at the time, and drove herself to the hospital. At that time she was diagnosed with a hip fracture. Patient has no family in the immediate area, but has a sister that lives in [place], [place]. She feels comfortable going home since she can stay with her friend. She will be working with physical therapy today. P: DCP to continue to follow. She could potentially go home this afternoon, but more likely tomorrow. Aurora Hector RN/Meat Smoker
[2020-05-19 11:40] LABS: Appearance Urine UA CLEAR; Bacteria Urine None Seen; Bilirubin Urine UA NEGATIVE (NEGATIVE); Color Urine UA YELLOW; Glucose Urine UA TRACE g/dL (Negative); Ketones Urine UA 1+ (NEGATIVE); Leukocyte Esterase Urine UA NEGATIVE (NEGATIVE); Nitrite Urine UA NEGATIVE (Negative); Occult Blood Urine UA NEGATIVE (Negative); Protein Urine UA NEGATIVE (Negative); RBC Urine None Seen (0-5/HPF); Specific Gravity Urine UA 1.015 (1.000-1.035); Urobilinogen Urine UA 0.2 E.U./dL (0.2)
[2020-05-19 11:47] LABS: Culture Indicated Urine Cult Not Indicated; WBC Urine 0-1/HPF (0-5/HPF)
--- NOTE | 2020-05-19 12:56 | CM.DPC ---
DCP Cont: Spoke to patient about an alternate plan at discharge regarding retirement. According to P.T, she is not remembering any of the hip precautions. Patient did not understand retirement. She thought it was one on one care. Explained that retirement has physical therapy services that can work with her daily in preparation for her going home. She gave permission to send referral to [facility]. Her first priority is to go home with her friend. Her friend would need to come in for training as well. Left a message with January at [facility] to review. Let her know that patient is Medicare, inpatient on 05/18, would qualify for retirement by . Talia physical therapist stated that patient is not remembering her hip precautions. Stated that she would benefit with O.T. Have not yet seen ortho to ask for orders. P: DCP to continue to follow. Original plan was to go home with her friend, but at this time, is uncertain if she can remember precautions. January at [facility] was left a message to review. May need to follow up with her as well. Aurora Hector RN/Dermatologist And Dermatopathologist
--- NOTE | 2020-05-19 15:05 | PT.IPTN ---
Current Diagnoses Broken internal right hip prosthesis, initial encounter (05/18/20) Presence of right artificial hip joint (05/18/20) Surgery Performed Operation Date: 05/18/20 11:15 Actual Procedures p Total Hip Arthroplasty Revision-cup and head(Right) - Sergio Montesinos MD Physical Therapy Treatment Note M2 PT-IP Current Condition Start: 05/19/20 12:08 Freq: NEEDED Status: Active Protocol: Document 05/19/20 09:30 AB (Rec: 05/19/20 12:35 AB [id number]) Physical Therapy Current Condition Current Condition Evaluation Date 05/19/20 Treatment Diagnosis s/p R BRE revision posterior approach; difficulty in walking Onset Date 05/18/20 Precautions Posterior Hip Precautions No Hip Flexion > 90 degrees,No Hip Internal Rotation,No Hip Adduction Weight Bearing Status Weight Bearing Status Weight Bear as Tolerated Allowed Weight Bearing Amount (enter % RLE WBAT or #) (%) M3 PT-IP Subjective Start: 05/19/20 12:08 Freq: NEEDED Status: Active Protocol: Document 05/19/20 15:05 AB (Rec: 05/19/20 17:17 AB [id number]) Subjective Physical Therapy Visit Type Type Treatment Note Visit Start Time 15:05 Visit Stop Time 16:15 Total Visit Minutes 70 Number of SIGNAL INTELLIGENCE ANALYST Visits 0 Physical Therapy Visit Comments Patient Comments agreeable to do PT Therapy Pain Assessment Pain Present Pain Present Denied Pain M4 PT-IP Mobility and Gait Start: 05/19/20 12:08 Freq: NEEDED Status: Active Protocol: Document 05/19/20 15:05 AB (Rec: 05/19/20 17:17 AB [id number]) PT-Transfer Assessment Sit to and From Stand Sit to and from Stand Standby Assistance,Contact Guard Assistance,1 Person Assistance,Use of Upper Extremities Equipment Transfer Assistive Device Gait Belt,Front Wheeled Walker Orthotic/Prosthetic Devices or Brace: No Comments Mobility Comments found pt sitting on chair and with her pants on. asked pt on how she was able to put her pants on and stated that she cannot remember. educated pt again on her precautions as pt is unable to recall any of her precautions. pt stated that she does not remember her precautions is because she is blocking her brain from remembering them. educated pt on importance of her hip precautions and safety. informed pt that in order for her to put her pants on by herself, she would have to move against her hip precautions. pt stated that she does not remember. completed sit to stand from chair SBA but with max cues to maintain hip precautions and ambulated using FWW SBA to CGA ~ 100 ft with cues with turning. pt sat on chair. Sit <>stand training conducted with emphasis on hip precautions and techniques x 5 reps. pt initially arguing with PT but eventually comprehended on rationale of techniques and tasks. pt required SBA but with initial max A but only required min cues towards end of repetition . positioned pt on chair. chair alarm on. called pt's friend/caregiver and agreed to do caregiver training. stated that she will be in at ~ 10 am tomorrow . pt's friend is worried about pt going home with her due to pt's memory issues and stated that pt can be stubborn. agreed to do caregiver training and will assess if pt's friend will be able to assist pt safely. Gait Assessment Gait Gait Assistance Required: Standby Assistance,Contact Guard Assist Distance (Feet) 100 Able to Maintain Weight Bearing Status Yes During Gait Assistive Devices Assistive Device Gait Belt,Front Wheeled Walker Orthotic/Prosthetic Devices or Brace: No Gait Deviations General Gait Pattern Antalgic Factors Limiting Gait Function Factors Limiting Gait Function Decreased Activity Tolerance, Decreased Strength,Difficulty Following Directions,Limited Range of Motion,Poor Balance, Poor Safety Awareness PT-Balance Assessment Sitting Balance and Reactions Static Sitting Balance Ability Good Dynamic Sitting Balance Ability Good Standing Balance and Reactions Static Standing Balance Ability Fair Dynamic Standing Balance Ability Fair Device Used FWW M5 PT-IP Objective Assessments Start: 05/19/20 12:08 Freq: NEEDED Status: Active Protocol: Document 05/19/20 09:30 AB (Rec: 05/19/20 12:35 AB [id number]) Orientation Orientation/Cognition Level of Alertness Alert Orientation Name,Place,Situation Language Function Ability Hard of Hearing Safety Awareness Decreased Safety Awareness Memory Description Short Term Impaired,Group Home Impaired Strength Lower Extremity Strength Assessment Right Impaired Hip 3+/5 Knee 4-/5 Coordination Assessment Gross Coordination Gross Coordination WNL Sensation Assessment Sensation Gross Sensation WNL Muscle Tone Muscle Tone WNL Yes M6 PT-IP Treatment Start: 05/19/20 12:08 Freq: NEEDED Status: Active Protocol: Document 05/19/20 15:05 AB (Rec: 05/19/20 17:17 AB [id number]) Physical Therapy Treatment Education Education Provided Precautions,Safety M7 PT-IP Assessment and Plan Start: 05/19/20 12:08 Freq: NEEDED Status: Active Protocol: Document 05/19/20 15:05 AB (Rec: 05/19/20 17:17 AB [id number]) PT Summary Assessment and Plan Potential Rehabilitation Potential Good Summary Impairments ROM,Strength,Balance,Cognition ,Bed Mobility,Transfers,Gait, Activity Tolerance Progress Towards Goals Slow Progress - Other Assessment Summary pt continues to require max cues to recall all precautions and max cues with all tasks to maintain hip precautions. pt has significant memory issues affecting safety awareness and mobility. Requested OT eval and informed major case detective. Caregiver training set up for tomorrow at 10 am but caregiver is also worried for pt to go home. will determined safe d/c plan after caregiver training but caregiver is open to rehab at this time. will continue to assess progress. Goals Bed Mobility Goal Standby Assistance Transfer Goal Standby Assistance,Front Wheeled Walker Gait Goal Standby Assistance,Front Wheel Walker Gait Distance 150 Days to Meet Goals 5 Frequency of Treatment Frequency Of Treatment Twice a Day Treatment Plan Physical Therapy Treatment Plan Bed Mobility Training,Transfer Training,Gait Training, Therapeutic Exercise,Balance Retraining,Post Op Education, Discharge Planning,Hot or Cold Pack,Neuromuscular Re-ed, Coordination Retraining,Manual Therapy Recommendations To Nursing Amount of Assist Needed 1 Person Assist Discharge Recommendations PT Discharge Recommendations Home with 24/7 Assist,Home Health,SNF Rehab Other Discharge Recommendations depending on progress: SNF vs home with 24/7 and HHPT Transportation Needs at Discharge Private Vehicle,Wheelchair/ Cabulance
--- NOTE | 2020-05-19 21:27 | PC.NURSE ---
Pt forgetful and impulsive. needs frequent reinforcement w/hip precautions. pt unclipped her chair alarm multiple times. R.hip dressing cdi. PP++. denied pain. call light in reach.
[2020-05-19] MEDS: SODIUM CHLORIDE 0.9% FLUSH 10 ML IV (21:36)
[2020-05-20 05:15] VITALS: BP 151/94; PULSE 97; RESP 14; TEMP 36.6; O2SAT 98
[2020-05-20 07:10] VITALS: BP 153/85; PULSE 90; RESP 19; TEMP 36.6; O2SAT 99
[2020-05-20 08:54] VITALS: BP 153/85; PULSE 90
[2020-05-20] MEDS: ASPIRIN EC 81 MG TABLET PO (08:54)
[2020-05-20] MEDS: DOCUSATE 100 MG CAPSULE PO (08:54)
[2020-05-20] MEDS: SODIUM CHLORIDE 0.9% FLUSH 10 ML IV (08:54)
[2020-05-20] MEDS: ACETAMINOPHEN 325 MG TABLET 650 MG PO ×2 (08:54→14:25)
[2020-05-20] MEDS: lisinopriL 10 MG TABLET PO (08:54)
--- NOTE | 2020-05-20 09:27 | PC.NURSE ---
Addendum entered by Eduarda Nassar R.N. 05/20/20 14:29: Discharge summary report packet reviewed with pt and her friend Chelsi. No further voiced concerns. Pt states pain 2/10 aching to right hip surgical area. Reviewed S/S of infection, pain management, prescription review. Pt left unit at 1435 via wheelchair in no distress with [employer] escort. Chelsi is present to drive pt home to Chelsi's house to stay post operatively. Follow up appointments confirmed with Dr. Montesinos's office and given info to pt for May 29 at 1:20 pm and Jun 26 at 1:20 pm. Addendum entered by Eduarda Nassar R.N. 05/20/20 13:36: per Kathrine,OT, pt okay to discharge home per OT and PT. [facility] called at 1330 and will be on unit shortly to discharge pt. Original Note: Day Shift- Pt A&OX4, [facility], May 20, 2020. Aware of having right hip surgery. Re-oriented to call light. as during shift change this AM, introductions made to pt, this Rn left the room, then 30 seconds later pt set bed alarm off sitting on side of bed. Pt states she needed to go to the Bathroom. reminded pt to use call light for assist out of bed to prevent falls after surgery. Pt stated she understood. Right posterior hip aquacel dressing is CDI, no numbness or tingling, PPP, no peripheral edema. Some weakness to RLE lifting leg against resistance, no increase in pain. Pillow placed between legs per post op precautions and reminded of importance of use to prevent crossing legs. Pt stated oh that's a good idea. Pt refused calf SCD's, explained risks and benefits. Pt was able to demonstrate ankle waves and encouraged to while in bed or chair. Bed alarm on, call light within reach. Pt's pain 2/10 dull aching to right hip, pt wants only scheduled Tylenol at this time. Pt ambulating OOB well, pt is not using walker in room with SBA.
--- NOTE | 2020-05-20 10:15 | PT.IPTN ---
Current Diagnoses Broken internal right hip prosthesis, initial encounter (05/18/20) Presence of right artificial hip joint (05/18/20) Surgery Performed Operation Date: 05/18/20 11:15 Actual Procedures p Total Hip Arthroplasty Revision-cup and head(Right) - Sergio Montesinos MD Physical Therapy Treatment Note M2 PT-IP Current Condition Start: 05/19/20 12:08 Freq: NEEDED Status: Active Protocol: Document 05/19/20 09:30 AB (Rec: 05/19/20 12:35 AB [id number]) Physical Therapy Current Condition Current Condition Evaluation Date 05/19/20 Treatment Diagnosis s/p R BRE revision posterior approach; difficulty in walking Onset Date 05/18/20 Precautions Posterior Hip Precautions No Hip Flexion > 90 degrees,No Hip Internal Rotation,No Hip Adduction Weight Bearing Status Weight Bearing Status Weight Bear as Tolerated Allowed Weight Bearing Amount (enter % RLE WBAT or #) (%) M3 PT-IP Subjective Start: 05/19/20 12:08 Freq: NEEDED Status: Active Protocol: Document 05/20/20 10:15 AB (Rec: 05/20/20 12:25 AB [id number]) Subjective Physical Therapy Visit Type Type Treatment Note Visit Start Time 10:15 Visit Stop Time 10:53 Total Visit Minutes 38 Number of DIRECTOR OF THE BIOPHYSICS FACILITY Visits 0 Physical Therapy Visit Comments Patient Comments pt is agreeable to do PT; caregiver friend not in room yet for training scheduled for 10am Therapy Pain Assessment Pain Present Pain Present Denied Pain M4 PT-IP Mobility and Gait Start: 05/19/20 12:08 Freq: NEEDED Status: Active Protocol: Document 05/20/20 10:15 AB (Rec: 05/20/20 12:25 AB [id number]) PT-Bed Mobility Assessment Supine to Sit Supine to Sit Standby Assistance Sit to Supine Sit to Supine Standby Assistance PT-Transfer Assessment Sit to and From Stand Sit to and from Stand Standby Assistance,1 Person Assistance Equipment Transfer Assistive Device Gait Belt,Front Wheeled Walker Orthotic/Prosthetic Devices or Brace: No Transfers Transfer Destination Bed,Chair Transfer Technique ambulated using FWW Transfer Ability Level of Assist Standby Assistance,Use of Upper Extremities Comments Mobility Comments reviewed hip precautions and pt was able to recall but continues to require cues for tasks to adhere to precautions but pt seems to have some carryover of safety. completed sit to stand from chair SBA and occasional min A for techniques. pt ambulated towards the bed using FWW SBA . completed sit <>supine SBA. friend came in and ready for training. educated pt's friend regarding pt's hip precautions and friend understood and stated that she had hip surgery before with the same precautions. pt completed sit to supine SBA. educated pt's friend on how to position abductor pillow and pt to have pillow on when in bed. pt completed supine to sit SBA . friend came with standard walker for pt to use and stated that she ordered a FWW but will arrive in ~ 2 days. pt completed ambulation using standard walker in room to the chair SBA and cues. pt tends to place standard walker too far forward. Pt and friend counter demonstrated sit<>stand and ambulation using standard walker. pt's friend was able to provide appropriate cues to pt. pt ambulated in the hallway ~ 150 ft using standard walker SBA. pt ambulated back to her room. pt and friend without further concerns. friend is comfortable on how pt is moving. Left pt with her friend and OT aware that they are ready for her. call light and table placed within reach . Gait Assessment Gait Gait Assistance Required: Standby Assistance Distance (Feet) 150 Able to Maintain Weight Bearing Status Yes During Gait Assistive Devices Assistive Device Gait Belt,Standard Walker Gait Deviations General Gait Pattern Antalgic Factors Limiting Gait Function Factors Limiting Gait Function Decreased Activity Tolerance, Decreased Strength,Limited Range of Motion,Poor Balance, Poor Safety Awareness M5 PT-IP Objective Assessments Start: 05/19/20 12:08 Freq: NEEDED Status: Active Protocol: Document 05/19/20 09:30 AB (Rec: 05/19/20 12:35 AB [id number]) Orientation Orientation/Cognition Level of Alertness Alert Orientation Name,Place,Situation Language Function Ability Hard of Hearing Safety Awareness Decreased Safety Awareness Memory Description Short Term Impaired,Custodial Impaired Strength Lower Extremity Strength Assessment Right Impaired Hip 3+/5 Knee 4-/5 Coordination Assessment Gross Coordination Gross Coordination WNL Sensation Assessment Sensation Gross Sensation WNL Muscle Tone Muscle Tone WNL Yes M6 PT-IP Treatment Start: 05/19/20 12:08 Freq: NEEDED Status: Active Protocol: Document 05/20/20 10:15 AB (Rec: 05/20/20 12:25 AB [id number]) Physical Therapy Treatment Education Education Provided Precautions,Safety M7 PT-IP Assessment and Plan Start: 05/19/20 12:08 Freq: NEEDED Status: Active Protocol: Document 05/20/20 10:15 AB (Rec: 05/20/20 12:25 AB [id number]) PT Summary Assessment and Plan Potential Rehabilitation Potential Good Summary Impairments Pain,ROM,Strength,Balance, Cognition,Bed Mobility, Transfers,Gait,Activity Tolerance Progress Towards Goals Progressing Toward Goals Assessment Summary caregiver training conducted and pt's friend was able to assist and provide cues for pt . pt plans to go to friend's house on d/c. pt will need homehealth PT at this time due to transportation issues and eventually be do outpt PT. Pt may go home when medically stable with assist. Goals Bed Mobility Goal Standby Assistance Transfer Goal Standby Assistance,Front Wheeled Walker Gait Goal Standby Assistance,Front Wheel Walker Gait Distance 150 Days to Meet Goals 5 Frequency of Treatment Frequency Of Treatment Twice a Day Treatment Plan Physical Therapy Treatment Plan Bed Mobility Training,Transfer Training,Gait Training, Therapeutic Exercise,Balance Retraining,Post Op Education, Discharge Planning,Hot or Cold Pack,Neuromuscular Re-ed, Coordination Retraining,Manual Therapy Recommendations To Nursing Amount of Assist Needed 1 Person Assist Discharge Recommendations PT Discharge Recommendations Home with 06/03 Assist,Home Health Transportation Needs at Discharge Private Vehicle
[2020-05-20 11:18] VITALS: BP 162/101; PULSE 93; RESP 18; TEMP 36.3; O2SAT 99
--- NOTE | 2020-05-20 11:37 | OT.IP.EVAL ---
Current Diagnoses Broken internal right hip prosthesis, initial encounter (05/18/20) Presence of right artificial hip joint (05/18/20) Surgery Performed Operation Date: 05/18/20 11:15 Actual Procedures p Total Hip Arthroplasty Revision-cup and head(Right) - Sergio Montesinos MD Past Medical History (Last Updated 05/11/20 @ 14:18 by Mattie Andrade, RN) Hearing impaired (Acute) Hypertension (Acute) Memory changes (Acute) Osteoarthritis (Acute) Surgical History (Last Updated 05/11/20 @ 14:18 by Mattie Andrade RN) History of total right hip arthroplasty (Acute 2006) Hx of shoulder surgery (Acute) Hx of tonsillectomy (Acute) Occupational Therapy Inpatient Evaluation/Re-Eval M1 PT/OT-IP Prior Functional Status Start: 05/20/20 11:50 Freq: NEEDED Status: Active Protocol: Document 05/20/20 11:55 [facility] (Rec: 05/20/20 12:10 [facility] [id number]) Medical Review Prior Functional Status Medical History Reviewed Yes Communication able to make needs known Mobility and Gait pt stated that she is modified independent with all mobilities and ambulation using SPC Activities of Daily Living and IADL's COmpletely independent for all ADl's and IADl needs, however does not drive. Social History Household Members none Living Arrangements House Number of Floors (Floors) Two Floors Number of Stairs To Enter/Railing? Pt plans to stay at her friend 's house for ~ 1 week: info for home set up is regrading pt's friend's house no steps to enter; pt will stay on main level of the house friend has a chair lift to get to 2nd level home Home Equipment Straight Cane Additional Social History Comment walk in shower pt has a standard walker M2 OT-IP Current Condition Start: 05/20/20 11:50 Freq: Status: Active Protocol: Document 05/20/20 11:55 [facility] (Rec: 05/20/20 12:10 [facility] [id number]) Occupational Therapy Current Condition Current Condition Evaluation Date 05/20/20 Treatment Diagnosis S/p Right revision BRE Post Operative Precautions Posterior Hip Precautions No Hip Flexion > 90 degrees,No Hip Internal Rotation,No Hip Adduction Weight Bearing Status Weight Bearing Status Weight Bear as Tolerated M3 OT- IP Subjective and Pain Start: 05/20/20 11:50 Freq: Status: Active Protocol: Document 05/20/20 11:55 [facility] (Rec: 05/20/20 12:10 [facility] [id number]) OT- Subjective Occupational Therapy Visit Type Type Initial Evaluation Visit Start Time 10:56 Visit Stop Time 11:37 Total Visit Minutes 41 Notes Pt's friend present for caregiver training. Occupational Therapy Visit Comments Patient Comments Pt wanting to go home. 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 OT Pain Assessment Pain When Pain Assessed At Rest Pain Present Pain Present Denied Pain M4 OT- IP ADL's Start: 05/20/20 11:50 Freq: Status: Active Protocol: Document 05/20/20 11:55 [facility] (Rec: 05/20/20 12:10 [facility] [id number]) OT [id number] Comments OT Self-Feeding Comments NOt at meal time. OT ADL-Grooming Comments OT Grooming Comments NOt performed. OT ADL-Dressing General Eval Lower Body Dressing Ability Maximum Assistance Areas Needing Assistance Pants/Shorts,Socks Comments OT Dressing Comments At this time, pt's friend will just assist the pt for all dressing needs due to her poor safety awareness of incorporating hip precaution needs. Hip kit issued and educated both pt and friend for use. Pt's friend to use with pt and educated her. Pt's friend has good understanding to be able to assist pt for all needs. OT ADL-Toileting Comments OT Toileting Comments Able to go over best way to be able to wipe via standing to wipe as prior pt would just bend over and reach to the back, however would be breaking her hip precaution of bending more than 90 degrees. OT ADL-Bathing Comments OT Bathing Comments Pt's friend to have standard walk in the shower or shower chair provides as needed and assist pt as well. M5 OT- IP IADL's Start: 05/20/20 11:50 Freq: Status: Active Protocol: Document 05/20/20 11:55 [facility] (Rec: 05/20/20 12:10 [facility] [id number]) OT-Instrumental Activities of Daily Living Home Safety Awareness Home Safety Comments At this time due to pt's decreased safety awareness especially without being able to recall and incorporate hip precautions for all needs, pt's friend to provide 24/7 supervision and assist. Driving Driving Caregiver Provides Assist M6 OT- IP Functional Cognition Start: 05/20/20 11:50 Freq: Status: Active Protocol: Document 05/20/20 11:55 [facility] (Rec: 05/20/20 12:10 [facility] [id number]) Cognitive Factors Limiting Selfcare Function Cognitive Ability Level of Alertness Alert Patient Orientation Name,Place,Situation Attention Span Ability Capable of Focused Attention, Capable of Sustained Attention Ability to Follow Commands Able to Follow One Step Commands Memory Description Short Term Impaired Safety Awareness Decreased Recall of Precautions,Decreased Ability to Apply Precautions, Underestimates Need for Assistance Problem Solving Ability Needs Assist to Identify Solutions Cognitive Comments Cognitive Assessment Comments Pt needing MAX vc for hip precautions and to be able to incorporate for all needs. Pt able to visually identify what she should not be doing when therapist able to demonstrate ADL's, however, not able to incorporate during transfers and Adl needs. OT- Vision and Hearing OT- Vision Assessment Visual Acuity Glasses All The Time M7 OT- IP Mobility and Balance Start: 05/20/20 11:50 Freq: Status: Active Protocol: Document 05/20/20 11:55 [facility] (Rec: 05/20/20 12:10 [facility] [id number]) OT-Transfer Assessment Sit to and From Stand Sit to and from Stand Standby Assistance Transfers Transfer Ability Standby Assistance Comments Mobility Comments SBA to stand, vc for safety to slide right LE out first. OT- Balance Assessment Sitting Balance and Reactions Static Sitting Balance Ability Normal Dynamic Sitting Balance Ability Normal Standing Balance and Reactions Static Standing Balance Ability Good M8 OT- IP Objective Assessments Start: 05/20/20 11:50 Freq: Status: Active Protocol: Document 05/20/20 11:55 [facility] (Rec: 05/20/20 12:10 [facility] [id number]) OT Gross Range of Motion Upper Extremity Range of Motion Assessment Within Functional Limits M9 OT- IP Assessment and Plan Start: 05/20/20 11:50 Freq: Status: Active Protocol: Document 05/20/20 11:55 [facility] (Rec: 05/20/20 12:10 [facility] [id number]) OT Summary Assessment and Plan Potential Rehabilitation Potential Good Analytic Complexity at Evaluation Low Summary OT Impairments Functional Cognition,Dressing, Toileting,Bathing,Toilet Transfers,Shower Transfers Progress Towards Goals Slow Progress due to Cognition Assessment Summary Pt low complexity s/p Right hip revision BRE. Pt's main barriers are decreased ability to recall and incorporate her hip precautions. Pt has a very supportive friend who will be taking her home and proved 24/7 assist/supervision so that pt will follow her hip precautions. Pt's friend has good awareness and safety to be able to assist pt for all needs. Pt looking to go to her friend's home today. Goals Dressing Goal Standby Assistance Toileting Goal Standby Assistance Bathing Goal Standby Assistance Toilet Transfer Goal Standby Assistance Shower Transfer Goal Standby Assistance Patient/Caregiver Education Goal Demonstrate Post-Op Precautions,Caregiver Independent Assisting Patient Days to Meet Goals 5 Frequency of Treatment Frequency Of Treatment Once a Day Treatment Plan OT Treatment Plan ADL Training,Functional Cognition Training,Functional Mobility,Patient/Family Education,Discharge Planning Discharge Recommendations OT Discharge Recommendations Home with 24/7 Assist Home Equipment Needs shower chair, LB dressing equipment issued Transportation Needs at Discharge Private Vehicle
--- NOTE | 2020-05-20 13:39 | CM.DPC ---
DCP Discharge Home Per Ortho PA, pt medically stable to d/c home today pending final PT/OT and CG training as pt has been borderline of safe for home with friend vs SNF. Per PT/OT, pt and friend participated in CG training and stairs today and now clearing pt for safe d/c home to friend's house today. SW received a call from [facility] stating they could accept pt and SW updated that pt now safe for d/c home with friend 24/7 assist. Plan: Patient dressed and ready for d/c home via friend POV and to stay 24/7 today. NAVI Rose
--- NOTE | 2020-05-20 13:46 | PM.DS.1 ---
History of Present Illness History of Present Illness Date Patient Seen: 05/20/20 Time Patient Seen: 13:46 Chief complaint: INPT Narrative: Please see HPI previously recorded in the chart. Discharge Providers Provider Date of admission: 05/18/20 09:14 Discharge Date: 05/20/20 Primary care physician: Josephine Guevara PA-C Consults: 05/18/20 06:00 Consult to Anesthesiology Routine Comment: Consulting Provider: Anesthesiologist Reason for consultation: Regional block for post operative pain control 05/18/20 16:24 Consult to Discharge Planning Routine Comment: Consult to Physical Therapy Evaluate & Treat Comment: Physician Instructions: post op BRE protocol Consult to Respiratory Therapy Evaluate & Treat Comment: Physician Instructions: Evaluate and treat 05/20/20 08:13 Consult to Occupational Therapy Evaluate & Treat Comment: Physician Instructions: Evaluate and treat Discharge provider: Rain Barber PA-C Summary Hospital Course Discharge Diagnosis: s/p revision BRE Hospital Course: Roslyn is a 79 year old female who had a 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 After discussion of benefits and risks she elected to proceed with a revision right total hip arthroplasty including revision of cup, liner, and head. After obtaining informed consent she underwent revision with Dr. Montesinos with no complications. She was taken to the acute care floor where she has been progressing postoperatively. She had some confusion on POD#1, no family or friends available to confirm if patient has baseline confusion so ordererd CMP, magnesium, UA and CXR which were all negative. POD#2 confusion improved and apparently she has some confusion at her baseline. Her pain has been well controlled with Tylenol. She has mobilized with PT, though requiring frequent reminders of precautions. She has a friend who will be her caregiver postop who was able to do caregiver training. She is tolerating a diet and voiding appropriately. She is stable for discharge to home today. Status at Discharge Cognitive/behavioral status at discharge: oriented Functional status at discharge: uses cane/walker Overall status at discharge: patient is progressing back to baseline Exam Vital Signs (past 8 hours): - 05/20/20 07:10 05/20/20 08:54 05/20/20 11:18 Temperature 97.8 F 97.4 F L Pulse Rate 90 90 93 H Respiratory Rate 19 18 Blood Pressure 153/85 H 153/85 H 162/101 H Pulse Oximetry 99 99 Oxygen Delivery Method Room Air Oxygen Flow Rate 0 Narrative Exam Narrative: 79 year old female resting in bed, alert and oriented x3. Dressing to the right hip is CDI. Neurovascularly intact in distal extremity. Calves soft, nontender. Objective Labs Result Diagrams: 05/19/20 05:39 05/19/20 05:35 Discharge Plan Discharge Plan Patient Disposition: Home Discharge orders & Medications Prescriptions: New acetaminophen 325 mg Tablet 650 mg PO TID Qty: 40 RF: 0 aspirin 81 mg Tablet,Delayed Release (Dr/Ec) 81 mg PO BID Qty: 40 RF: 0 hydrocodone-acetaminophen 5-325 mg Tablet 1 tab PO Q4HR PRN (Reason: Pain, Severe (7-10)) Qty: 15 RF: 0 Continued lisinopril 5 mg tablet 10 mg PO DAILY RF: 0 Follow up/Referrals: Sergio Montesinos MD [Physician] - (follow up appointment as previously scheduled) Diet/Activity/Treatments Diet: Diet as Tolerated Activity: Frequent short walks, use a front wheel walker. Follow your posterior hip precautions Skin/Wound/Dressing Care Report to your healthcare provider any signs of infection, such as:: chills, fever, night sweats, unusual drainage and unusual redness Dressing: Dressing will remain in place until your [address] follow up with Dr. Montesinos. Call the office if the dressing becomes saturated. Visit Report/Discharge Packet Instructions: DI for Hip Replacement, How to Prevent Falls, DI for Postoperative Pain, DI for Prescription Opioid Use, Hydrocodone/Acetaminophen (By mouth) Stand Alone Forms: Surgery Discharge Visit Report Forms: Patient Portal/API, Stroke Signs & Symptoms Discharge Data Primary Care Provider: Josephine Guevara
== END 2020-05-20 14:35 | disposition home or self-care (01) | DRG 467 ==
PROVIDERS: Physician Assistant Surgical; Admitting Provider Orthopaedic Surgery Adult Reconstructive Orthopaedic Surgery; PCP Physician Assistant; Referring Provider Orthopaedic Surgery; Visit Provider Orthopaedic Surgery Adult Reconstructive Orthopaedic Surgery
PROC: 0SP90JZ Removal of Synthetic Substitute from Right Hip Joint, Open Approach (ICD-10-PCS; principal; 2020-05-18 11:15)
DX: T84.89XA Other specified complication of internal orthopedic prosthetic devices, implants and grafts, initial encounter (principal); M87.351 Other secondary osteonecrosis, right femur; F05 Delirium due to known physiological condition; T56.2X4A Toxic effect of chromium and its compounds, undetermined, initial encounter; M85.851 Other specified disorders of bone density and structure, right thigh; I10 Essential (primary) hypertension; Z01.812 Encounter for preprocedural laboratory examination; Z11.59 Encounter for screening for other viral diseases; R73.9 Hyperglycemia, unspecified
CPT/HCPCS: 36415; 71045; 72170; 80048; 80053; 81001; 83036; 83735; 85014; 85018; 85025; 87070; 87075; 87205; 87635; 97116; 97161; 97165; 97530; 97535; C1776; J0690; J1100; J1885; J2250; J2270; J2274; J2405; J2704; J3010